=== PATIENT | female | born 1960 | race Asian ===

== ENCOUNTER 2019-04-17 20:41 | Emergency (ER) | payer OTHER ==
[~2019-04-17] VITALS: Ht 157.5 cm; Wt 57.2 kg
[~2019-04-17 20:41] MED LIST: IBUP-1542 PO; NEOM1PAC TP; SLSL1C50 TOP
[2019-04-17 20:51] VITALS: Ht 157.5 cm; Wt 57.2 kg
[2019-04-17] MEDS ORDERED: DIPHTH/TET/ACEL PERTUSS (ADULT) 0.5 ML VIAL IM* ONE (23:00)
[2019-04-17] MEDS ORDERED: NEOMYC/POLYMYX/BACIT 0.9 GM OINT TOP ONE (23:00)
[2019-04-17 23:02] VITALS: BP 110/65; PULSE 77; RESP 18
== END 2019-04-17 23:02 | disposition home or self-care (01) ==
LOC: E/R 20:41
DX: T22.212A Burn of second degree of left forearm, initial encounter (principal); T21.22XA Burn of second degree of abdominal wall, initial encounter; T31.0 Burns involving less than 10% of body surface; X12.XXXA Contact with other hot fluids, initial encounter; Y92.9 Unspecified place or not applicable; Z23 Encounter for immunization
CPT/HCPCS: 90471; 90715

== ENCOUNTER 2019-04-20 21:10 | Emergency (ER) | payer OTHER ==
[~2019-04-20] VITALS: Ht 160 cm; Wt 56.5 kg
[2019-04-20 21:12] VITALS: Ht 160 cm; Wt 56.5 kg
[2019-04-20] MEDS ORDERED: IBUPROFEN 600 MG TAB PO ONE (22:30)
[2019-04-20] MEDS ORDERED: SILVER SULFADIAZINE 1% 400 GM CR TOP ONE (22:30)
[2019-04-20] MEDS ORDERED: SILVER SULFADIAZINE 1% 25 GM CR TOP ONE (23:00)
[2019-04-20 23:12] VITALS: BP 124/70; PULSE 52; RESP 18
== END 2019-04-20 23:13 | disposition home or self-care (01) ==
LOC: FTE 21:10
DX: T22.212A Burn of second degree of left forearm, initial encounter (principal); T21.32XA Burn of third degree of abdominal wall, initial encounter; X11.8XXA Contact with other hot tap-water, initial encounter